=== PATIENT | female | born 1950 | race Caucasian/White ===

== ENCOUNTER → 2016-06-28 | Outpatient (CLI) | payer MEDICARE, OTHER | LOC: HEART 5 06-09 10:30 | DX: M79.604 Pain in right leg (principal) ==

== ENCOUNTER 2020-04-16 12:14 | Inpatient (IN) | payer OTHER, MEDICARE ==
[~2020-04-16] VITALS: Ht 167.6 cm; Wt 66.7 kg
[2020-04-16 16:48] LABS: HEMOGLOBIN 14.9 gm/dl (12.3-15.3); RED BLOOD COUNT 5.26 M/UL (4.00-5.10); WHITE BLOOD COUNT 8.9 K/UL (4.5-11.0)
[2020-04-16 17:07] LABS: BUN/CREATININE RATIO 11 (0-10)
[2020-04-16] MEDS ORDERED: NEXIUM40 MG PO (17:35)
[2020-04-16] MEDS ORDERED: LEVOTHYROXINE150 MC1 PO (17:35)
[2020-04-16] MEDS ORDERED: VITAMIN B-125000 MC2 PO (17:35)
[2020-04-16] MEDS ORDERED: ASPIRIN EC81 MG PO (17:36)
[2020-04-16] MEDS ORDERED: DAILY MULTIPLE1 EAC1 PO (17:36)
[2020-04-16] MEDS ORDERED: VITAMIN C1000 MG PO (17:37)
[2020-04-16] MEDS ORDERED: NEURONTIN800 MG PO (17:38)
[2020-04-16] MEDS ORDERED: ROPINIROLE HCL1 MG PO (17:41)
[2020-04-16] MEDS ORDERED: ROXICODONE15 MG PO (17:42)
[2020-04-16] MEDS ORDERED: VITAMIN D21250 MCG PO (17:43)
[2020-04-16] MEDS ORDERED: OZEMPIC SQ (17:45)
[2020-04-16] MEDS ORDERED: BIOTIN2500 MCG PO (17:48)
[2020-04-16] MEDS ORDERED: DEXAMETHASONE2 MG PO (17:49)
[2020-04-16] MEDS ORDERED: BANOPHEN25 MG PO (17:50)
[2020-04-16] MEDS ORDERED: SEROQUEL50 MG PO (17:51)
[2020-04-16] MEDS ORDERED: BUSPIRONE HCL15 MG PO (17:51)
[2020-04-16] MEDS ORDERED: DURAGESIC1 EACH TD (17:53)
[2020-04-16] MEDS ORDERED: DURAGESIC1 EAC3 TD (17:53)
[2020-04-16] MEDS ORDERED: ATIVAN0.5 MG PO (17:54)
[2020-04-16] MEDS ORDERED: LANTUS SOL100 UNIT/1 SQ (17:56)
[2020-04-16] MEDS ORDERED: NOVOLOG FL100 UNIT/1 INJ (17:58)
[2020-04-17 03:12] LABS: HEMOGLOBIN 12.7 gm/dl (12.3-15.3); RED BLOOD COUNT 4.45 M/UL (4.00-5.10)
[2020-04-17 03:28] LABS: BUN/CREATININE RATIO 14 (0-10)
[2020-04-17 12:09] LABS: HEMOGLOBIN 12.4 gm/dl (12.3-15.3); RED BLOOD COUNT 4.36 M/UL (4.00-5.10); WHITE BLOOD COUNT 13.3 K/UL (4.5-11.0)
[2020-04-17 12:28] LABS: BUN/CREATININE RATIO 11 (0-10)
[2020-04-17 16:40] LABS: WHITE BLOOD COUNT 10.6 K/UL (4.5-11.0)
[2020-04-17 16:42] LABS: HEMOGLOBIN 10.4 gm/dl (12.3-15.3); RED BLOOD COUNT 3.67 M/UL (4.00-5.10)
[2020-04-18 02:54] LABS: RED BLOOD COUNT 3.17 M/UL (4.00-5.10); WHITE BLOOD COUNT 7.6 K/UL (4.5-11.0)
[2020-04-18 03:04] LABS: BUN/CREATININE RATIO 22 (0-10)
[2020-04-19 03:13] LABS: HEMOGLOBIN 8.5 gm/dl (12.3-15.3); RED BLOOD COUNT 3.01 M/UL (4.00-5.10); WHITE BLOOD COUNT 7.8 K/UL (4.5-11.0)
[2020-04-19 03:38] LABS: BUN/CREATININE RATIO 18 (0-10)
[2020-04-19] MEDS ORDERED: ENOXAPARIN40 MG/0.4 SC (13:26)
[2020-04-20 07:04] LABS: HEMOGLOBIN 8.4 gm/dl (12.3-15.3); RED BLOOD COUNT 2.98 M/UL (4.00-5.10); WHITE BLOOD COUNT 6.6 K/UL (4.5-11.0)
[2020-04-20 07:34] LABS: BUN/CREATININE RATIO 13 (0-10)
--- NOTE | 2020-04-21 23:08 | NUR ---
2229-BENITA NOTIFIED THAT PATIENT'S HOME HEALTH WAS NOT SET UP YET SO SHE COULD NOT BE DISCHARGED TONIGHT. BENITA TOLD RN TO NOTIFY THE HOSPITALIST. 2299-DR TALBERT NOTIFIED THAT PATIENT WILL NOT BE ABLE TO BE DISCHARGED TONIGHT
== END 2020-04-22 23:47 | disposition home health service (06) | DRG 481 ==
LOC: ER1 12:14 → CDU 16:46 → M/S 16:46 → MED SURG 4 18:46 → M/S 19:04
PROVIDERS: Orthopaedic Surgery; Physician Assistant; ADMIT Family Medicine
PROC: 0QS606Z Reposition Right Upper Femur with Intramedullary Internal Fixation Device, Open Approach (ICD-10-PCS; principal; 2020-04-17 11:00)
DX: S72.141A Displaced intertrochanteric fracture of right femur, initial encounter for closed fracture (principal); C34.90 Malignant neoplasm of unspecified part of unspecified bronchus or lung; N30.00 Acute cystitis without hematuria; Z20.822 Contact with and (suspected) exposure to COVID-19; W18.30XA Fall on same level, unspecified, initial encounter; I44.7 Left bundle-branch block, unspecified; E03.9 Hypothyroidism, unspecified; Z66 Do not resuscitate; I10 Essential (primary) hypertension; M50.30 Other cervical disc degeneration, unspecified cervical region; D64.9 Anemia, unspecified; E11.65 Type 2 diabetes mellitus with hyperglycemia; G89.3 Neoplasm related pain (acute) (chronic); Y93.89 Activity, other specified; Y92.003 Bedroom of unspecified non-institutional (private) residence as the place of occurrence of the external cause; Z87.891 Personal history of nicotine dependence; Z90.49 Acquired absence of other specified parts of digestive tract; Z82.49 Family history of ischemic heart disease and other diseases of the circulatory system; Z79.82 Long term (current) use of aspirin; Z79.890 Hormone replacement therapy; Z79.4 Long term (current) use of insulin; Z79.899 Other long term (current) drug therapy
CPT/HCPCS: 36415; 36600; 70450; 70486; 71045; 72100; 72125; 72192; 73502; 73552; 76000; 80048; 80053; 81001; 82803; 82962; 83036; 83605; 85025; 85027; 85610; 87040; 93005; 96365; 96372; 96375; 97110; 97110-GP-CQ; 97162; 97166; 97530; 97530-GP-CQ; 97535; 99285; C1713; J0592; J0690; J0696; J1100; J1650; J1940; J2001; J2270; J2370; J2704; J2795; J7120; U0002